=== PATIENT | male | born 1955 | race African-American/Black ===

== ENCOUNTER → 2016-11-03 | Outpatient (CLI) | payer MEDICARE, MEDICAID | END | disposition home or self-care (01) | LOC: MRI 15:35 | DX: M75.101 Unspecified rotator cuff tear or rupture of right shoulder, not specified as traumatic (principal); M19.011 Primary osteoarthritis, right shoulder | CPT/HCPCS: 73221 ==

== ENCOUNTER 2017-10-26 02:59 | Emergency (ER) | payer MEDICARE, MEDICAID ==
[~2017-10-26] VITALS: Ht 160 cm; Wt 74.0 kg
[2017-10-26] MEDS ORDERED: SODIUM CHLORIDE 0.9% 1,000 ML IV ONE (05:22)
[2017-10-26 05:40] LABS: BASOPHILS % 1.3 % (0.0-2.0); EOSINOPHILS % 0.8 % (0.0-5.0); HEMATOCRIT. 45.6 % (42.0-52.0); HEMOGLOBIN. 15.7 g/dL (14.0-18.0); LYMPHOCYTES % 33.5 % (20.0-50.0); MEAN CORPUSCULAR VOLUME 93.2 fL (80.0-94.0); MEAN PLATELET VOLUME 8.1 fl (7.4-10.4); MONOCYTES % 12.4 % (2.0-8.0); PLATELET 178 x1000/uL (130-400); RED BLOOD CELL COUNT 4.89 mill/uL (4.7-6.1); RED CELL DISTRIBUTION WIDTH 15.9 % (11.6-14.6)
[2017-10-26 05:41] LABS: CHLORIDE 107 mEq/L (98-107)
[2017-10-26 05:43] LABS: PROTHROMBIN TIME 10.2 sec (9.1-11.1)
[2017-10-26 08:47] VITALS: BP 122/62
== END 2017-10-26 08:46 | disposition home or self-care (01) ==
LOC: ER 02:59
DX: S80.212A Abrasion, left knee, initial encounter (principal); S80.211A Abrasion, right knee, initial encounter; W06.XXXA Fall from bed, initial encounter; Y93.89 Activity, other specified; Y92.89 Other specified places as the place of occurrence of the external cause; Y99.8 Other external cause status
CPT/HCPCS: 36415; 73562; 80053; 85025; 85610; 99285; J7030

== ENCOUNTER 2017-12-03 03:34 | Emergency (ER) | payer MEDICARE, MEDICAID ==
[~2017-12-03] VITALS: Ht 162.6 cm; Wt 65.9 kg
[2017-12-03] MEDS ORDERED: MAGNESIUM/ALUMINUM HYDROXIDE/SIMETHICONE 30ML UDC PO STA (04:39)
[2017-12-03 04:56] LABS: BASOPHILS % 1.3 % (0.0-2.0); EOSINOPHILS % 0.8 % (0.0-5.0); HEMATOCRIT. 45.5 % (42.0-52.0); HEMOGLOBIN. 15.3 g/dL (14.0-18.0); LYMPHOCYTES % 18.6 % (20.0-50.0); MEAN CORPUSCULAR HEMOGLOBIN 31.7 pg (28.0-32.0); MEAN CORPUSCULAR VOLUME 94.4 fL (80.0-94.0); MEAN PLATELET VOLUME 8.7 fl (7.4-10.4); MONOCYTES % 12.3 % (2.0-8.0); PLATELET 175 x1000/uL (130-400); RED BLOOD CELL COUNT 4.82 mill/uL (4.7-6.1); RED CELL DISTRIBUTION WIDTH 15.3 % (11.6-14.6)
[2017-12-03 05:02] LABS: CHLORIDE 108 mEq/L (98-107)
[2017-12-03 06:42] VITALS: BP 127/80
== END 2017-12-03 06:45 | disposition home or self-care (01) ==
LOC: ER 03:34
DX: R10.32 Left lower quadrant pain (principal)
CPT/HCPCS: 36415; 71045; 93005; 99285

== ENCOUNTER 2018-03-11 12:51 | Inpatient (IN) | payer MEDICARE, MEDICAID ==
[~2018-03-11] VITALS: Ht 160 cm; Wt 69.9 kg
[2018-03-11] MEDS ORDERED: ASPIRIN 81MG TABLET PO ONE (15:45)
[2018-03-11] MEDS ORDERED: ALBUTEROL (0.083%) 2.5MG/3ML NEB HHN STA (15:45)
[2018-03-11] MEDS ORDERED: IPRATROPIUM BROMIDE (0.02%) 0.5MG/2.5ML NEB HHN STA (15:45)
[2018-03-11 16:52] LABS: BASOPHILS % 1.1 % (0.0-2.0); EOSINOPHILS % 0.8 % (0.0-5.0); HEMATOCRIT. 45.5 % (42.0-52.0); HEMOGLOBIN. 14.9 g/dL (14.0-18.0); LYMPHOCYTES % 33.7 % (20.0-50.0); MEAN CORPUSCULAR HEMOGLOBIN 30.5 pg (28.0-32.0); MEAN PLATELET VOLUME 7.7 fl (7.4-10.4); MONOCYTES % 12.1 % (2.0-8.0); NEUTROPHILS % 52.3 % (40.0-76.0); PLATELET 224 x1000/uL (130-400); RED BLOOD CELL COUNT 4.89 mill/uL (4.7-6.1); RED CELL DISTRIBUTION WIDTH 16.5 % (11.6-14.6)
[2018-03-11 16:57] LABS: CHLORIDE 110 mEq/L (98-107)
[2018-03-11] MEDS ORDERED: MAGNESIUM/ALUMINUM HYDROXIDE/SIMETHICONE 30ML UDC PO PRN (20:30)
[2018-03-11] MEDS ORDERED: ONDANSETRON HCL 4MG/2ML INJ IV PRN (20:30)
[2018-03-11] MEDS ORDERED: ACETAMINOPHEN 325MG TABLET PO PRN (20:30)
[2018-03-11] MEDS ORDERED: CLONIDINE 0.1MG TABLET PO PRN (20:30)
[2018-03-11] MEDS ORDERED: MONTELUKAST SODIUM 10MG TABLET PO NR (21:45)
[2018-03-12 04:00] VITALS: BP 109/72
[2018-03-12] MEDS ORDERED: BUDESONIDE 0.25MG/2ML NEB HHN NR (04:00)
[2018-03-12] MEDS ORDERED: MONT10TA21 PO (05:40)
[2018-03-12] MEDS ORDERED: MELO-106 PO (05:41)
[2018-03-12] MEDS ORDERED: BENZ100C86 PO (05:41)
[2018-03-12 08:00] VITALS: BP 112/69
[2018-03-12 08:23] LABS: BG CARBOXYHEMOGLOBIN 0.7 % (0.5-1.5); BG DEOXYHEMOGLOBIN 6.3 % (0.0-5.0); BG FRACTION INSPIRED OXYGEN 21; BG HCO3 ACT 24.9 mmol/L (22.0-26.0); BG METHEMOGLOBIN 0.2 % (0.0-1.5); BG OXYGEN SATURATION 93.6 % (92.0-98.5); BG OXYHEMOGLOBIN 92.8 % (94.0-97.0); BG PCO2 37.1 mmHg (35.0-45.0); BG PH 7.444 (7.350-7.450); BG PO2 68.3 mmHg (75.0-100.0); BG SAMPLE SITE LEFT RADIAL; BG TOTAL HEMOGLOBIN 13.9 g/dL (12.0-18.0); BG VENT MODE ROOM AIR
[2018-03-12] MEDS ORDERED: ENOXAPARIN 80MG/0.8ML SYR SUBCUT NR (08:30)
[2018-03-12] MEDS: IPRATROPIUM/ALBUTEROL 0.5-3(2.5)MG/3ML NEB HHN SCH ×4 (08:44→20:06)
[2018-03-12] MEDS: BUDESONIDE 0.5MG/2ML NEB HHN SCH ×2 (08:45→20:07)
[2018-03-12] MEDS: TAMSULOSIN HCL 0.4MG SR CAPSULE PO SCH (08:58)
[2018-03-12] MEDS: DOCUSATE SODIUM 100MG CAPSULE PO SCH (08:59)
[2018-03-12] MEDS: FLUTICASONE PROPIONATE 50MCG/SPRAY BOTTLE BOTHNSTRLS SCH ×2 (09:00→20:36)
[2018-03-12] MEDS ORDERED: ENOXAPARIN 40MG/0.4ML SYR SUBCUT SCH (09:00)
[2018-03-12 11:56] VITALS: BP 107/65
[2018-03-12] MEDS: SODIUM CHLORIDE 0.45% 1,000 ML IV SCH (13:11)
[2018-03-12 16:00] VITALS: BP 100/55
[2018-03-12 16:03] LABS: EOSINOPHILS % 0.9 % (0.0-5.0); HEMATOCRIT. 39.2 % (42.0-52.0); HEMOGLOBIN. 12.8 g/dL (14.0-18.0); LYMPHOCYTES % 26.7 % (20.0-50.0); MEAN CORPUSCULAR HEMOGLOBIN 30.4 pg (28.0-32.0); MEAN CORPUSCULAR VOLUME 92.8 fL (80.0-94.0); MEAN PLATELET VOLUME 7.9 fl (7.4-10.4); MONOCYTES % 10.4 % (2.0-8.0); PLATELET 208 x1000/uL (130-400); RED BLOOD CELL COUNT 4.22 mill/uL (4.7-6.1); RED CELL DISTRIBUTION WIDTH 16.6 % (11.6-14.6)
[2018-03-12 16:35] LABS: CHLORIDE 112 mEq/L (98-107)
[2018-03-12 16:46] LABS: CREATINE KINASE MB FRACTION 1.4 ng/mL (0.5-3.6)
[2018-03-12] MEDS: MONTELUKAST SODIUM 10MG TABLET PO SCH (18:24)
[2018-03-12 18:57] LABS: CLARITY URINE CLEAR (CLEAR); COLOR URINE YELLOW (YELLOW); KETONES URINE TRACE (NEGATIVE); LEUKOCYTE ESTERASE URINE NEGATIVE (NEGATIVE); NITRITE URINE NEGATIVE (NEGATIVE); OCCULT BLOOD URINE NEGATIVE (NEGATIVE); PROTEIN URINE NEGATIVE (NEGATIVE); SPECIFIC GRAVITY URINE 1.026 (1.005-1.030); UROBILINOGEN URINE 0.2 E.U./dL (0.2-1.0)
[2018-03-12 19:21] LABS: *AMPHETAMINES SCREEN URINE NEGATIVE (NEGATIVE); *BARBITURATES SCREEN URINE NEGATIVE (NEGATIVE); *BENZODIAZEPINES SCREEN URINE NEGATIVE (NEGATIVE); *COCAINE SCREEN URINE NEGATIVE (NEGATIVE); METHADONE URINE SCREEN NEGATIVE (NEGATIVE); OPIATES URINE SCREEN NEGATIVE (NEGATIVE)
[2018-03-12 19:22] LABS: CANNABINOID URINE SCREEN NEGATIVE (NEGATIVE); PHENCYCLIDINE URINE SCREEN NEGATIVE (NEGATIVE)
[2018-03-12 20:00] VITALS: BP 105/60
[2018-03-12] MEDS ORDERED: ENOXAPARIN 80MG/0.8ML SYR SUBCUT SCH (21:00)
[2018-03-13] VITALS: BP 116/52
[2018-03-13] MEDS: IPRATROPIUM/ALBUTEROL 0.5-3(2.5)MG/3ML NEB HHN SCH ×6 (00:19→20:10)
[2018-03-13 04:00] VITALS: BP 113/62
[2018-03-13 06:00] LABS: INR 1.1; PROTHROMBIN TIME 10.7 sec (9.1-11.1)
[2018-03-13 06:14] LABS: BASOPHILS % 0.9 % (0.0-2.0); EOSINOPHILS % 2.3 % (0.0-5.0); HEMATOCRIT. 39.9 % (42.0-52.0); HEMOGLOBIN. 13.1 g/dL (14.0-18.0); LYMPHOCYTES % 33.6 % (20.0-50.0); MEAN CORPUSCULAR HEMOGLOBIN 30.7 pg (28.0-32.0); MEAN CORPUSCULAR VOLUME 93.2 fL (80.0-94.0); MEAN PLATELET VOLUME 7.7 fl (7.4-10.4); MONOCYTES % 10.6 % (2.0-8.0); NEUTROPHILS % 52.6 % (40.0-76.0); PLATELET 202 x1000/uL (130-400); RED BLOOD CELL COUNT 4.28 mill/uL (4.7-6.1); RED CELL DISTRIBUTION WIDTH 16.9 % (11.6-14.6)
[2018-03-13 06:26] LABS: CHLORIDE 112 mEq/L (98-107)
[2018-03-13] MEDS: SODIUM CHLORIDE 0.45% 1,000 ML IV SCH (06:30)
[2018-03-13 08:00] VITALS: BP 116/67
[2018-03-13] MEDS: DOCUSATE SODIUM 100MG CAPSULE PO SCH (08:33)
[2018-03-13] MEDS: TAMSULOSIN HCL 0.4MG SR CAPSULE PO SCH (08:34)
[2018-03-13] MEDS: FLUTICASONE PROPIONATE 50MCG/SPRAY BOTTLE BOTHNSTRLS SCH ×2 (08:38→21:00)
[2018-03-13] MEDS: RIVAROXABAN 15 MG TABLET PO SCH ×2 (08:42→16:44)
[2018-03-13] MEDS: BUDESONIDE 0.5MG/2ML NEB HHN SCH ×2 (09:37→20:10)
[2018-03-13 12:00] VITALS: BP 110/54
[2018-03-13] MEDS: MONTELUKAST SODIUM 10MG TABLET PO SCH (16:44)
[2018-03-13 16:45] VITALS: BP 97/57
[2018-03-13 20:00] VITALS: BP 100/72
[2018-03-14] VITALS: BP 113/75
[2018-03-14] MEDS: IPRATROPIUM/ALBUTEROL 0.5-3(2.5)MG/3ML NEB HHN SCH ×3 (00:12→08:55)
[2018-03-14] MEDS: SODIUM CHLORIDE 0.45% 1,000 ML IV SCH (01:36)
[2018-03-14 04:00] VITALS: BP 109/64
[2018-03-14 08:00] VITALS: BP 117/71
[2018-03-14 08:08] LABS: HEMATOCRIT. 41.1 % (42.0-52.0); HEMOGLOBIN. 13.6 g/dL (14.0-18.0); MEAN CORPUSCULAR HEMOGLOBIN 30.7 pg (28.0-32.0); MEAN CORPUSCULAR VOLUME 92.6 fL (80.0-94.0); MEAN PLATELET VOLUME 7.6 fl (7.4-10.4); PLATELET 203 x1000/uL (130-400); RED BLOOD CELL COUNT 4.44 mill/uL (4.7-6.1); RED CELL DISTRIBUTION WIDTH 16.9 % (11.6-14.6)
[2018-03-14 08:18] LABS: CHLORIDE 112 mEq/L (98-107)
[2018-03-14] MEDS: BUDESONIDE 0.5MG/2ML NEB HHN SCH (08:55)
[2018-03-14] MEDS: DOCUSATE SODIUM 100MG CAPSULE PO SCH (09:27)
[2018-03-14] MEDS: RIVAROXABAN 15 MG TABLET PO SCH (09:27)
[2018-03-14] MEDS: TAMSULOSIN HCL 0.4MG SR CAPSULE PO SCH (09:28)
[2018-03-14] MEDS: FLUTICASONE PROPIONATE 50MCG/SPRAY BOTTLE BOTHNSTRLS SCH (09:32)
[2018-03-14 10:41] VITALS: BP 96/117
[2018-03-14 15:24] LABS: PLATELET ESTIMATE NORMAL
== END 2018-03-14 11:13 | disposition home or self-care (01) | DRG 682 ==
LOC: ER 12:51 → 8WST 18:31 → EDBEDREQ 18:41 → ENRESERV 03-12 02:28
PROVIDERS: ADMIT Internal Medicine Geriatric Medicine; ATTEND Internal Medicine Geriatric Medicine
DX: N17.9 Acute kidney failure, unspecified (principal); I26.99 Other pulmonary embolism without acute cor pulmonale; I82.412 Acute embolism and thrombosis of left femoral vein; J45.901 Unspecified asthma with (acute) exacerbation; F84.0 Autistic disorder; I82.432 Acute embolism and thrombosis of left popliteal vein; R62.50 Unspecified lack of expected normal physiological development in childhood; M19.92 Post-traumatic osteoarthritis, unspecified site; R79.89 Other specified abnormal findings of blood chemistry; R33.9 Retention of urine, unspecified; D64.9 Anemia, unspecified; R34 Anuria and oliguria; Z91.81 History of falling; Q90.9 Down syndrome, unspecified; Z79.01 Long term (current) use of anticoagulants
CPT/HCPCS: 36415; 36600; 71045; 78582; 80048; 80305; 82270; 82375; 82553; 82805; 83880; 84484; 93005; 93306; 93970; 94640; 97116; 97162; 99285; A9558; C1893; J1650; J7611; J7620; J7626

== ENCOUNTER → 2018-05-22 | Outpatient (CLI) | payer MEDICARE, MEDICAID ==
[~2018-05-22] MED LIST: ASCO100T12 PO; BENZ100C86 PO; CENTRUM LIQUID; MELO-106 PO; MOM PO; MONT10TA21 PO; POTASSIUM; RIVA20TA PO; TAMS0.4C31 PO; VOLTAREN GEL
== END | disposition home or self-care (01) ==
LOC: CARD 09:49
PROVIDERS: ATTEND Psychiatry & Neurology Neurology
DX: F05 Delirium due to known physiological condition (principal); R26.89 Other abnormalities of gait and mobility

== ENCOUNTER 2018-06-24 12:46 | Emergency (ER) | payer MEDICARE, MEDICAID ==
[~2018-06-24] VITALS: Ht 162.6 cm; Wt 70.0 kg
[~2018-06-24 12:46] MED LIST changes: -ASCO100T12 PO; -CENTRUM LIQUID; -MOM PO; -POTASSIUM; -RIVA20TA PO; -TAMS0.4C31 PO; -VOLTAREN GEL
[2018-06-24] MEDS ORDERED: TAMS0.4C31 PO (12:58)
[2018-06-24] MEDS ORDERED: POTASSIUM (12:58)
[2018-06-24] MEDS ORDERED: RIVA20TA PO (12:58)
[2018-06-24] MEDS ORDERED: MOM PO (12:58)
[2018-06-24] MEDS ORDERED: CENTRUM LIQUID (12:58)
[2018-06-24] MEDS ORDERED: VOLTAREN GEL (12:58)
[2018-06-24] MEDS ORDERED: ASCO100T12 PO (12:58)
[2018-06-24 18:00] VITALS: BP 118/68
== END 2018-06-24 18:27 | disposition home or self-care (01) ==
LOC: ER 12:46
DX: I82.5Z2 Chronic embolism and thrombosis of unspecified deep veins of left distal lower extremity (principal); Z79.899 Other long term (current) drug therapy
CPT/HCPCS: 93971; 99284

== ENCOUNTER 2018-08-07 16:06 | Inpatient (IN) | payer MEDICARE, MEDICAID ==
[~2018-08-07] VITALS: Ht 160 cm; Wt 73.0 kg
[~2018-08-07 16:06] MED LIST changes: +ASCO100T12 PO; +CENTRUM LIQUID; +MOM PO; +POTASSIUM; +RIVA20TA PO; +TAMS0.4C31 PO; +VOLTAREN GEL
[2018-08-07] MEDS ORDERED: TRAMADOL 50MG TABLET PO ONE (18:30)
[2018-08-07 20:02] LABS: BASOPHILS % 0.9 % (0.0-2.0); EOSINOPHILS % 0.6 % (0.0-5.0); HEMATOCRIT. 47.6 % (42.0-52.0); HEMOGLOBIN. 16.1 g/dL (14.0-18.0); LYMPHOCYTES % 37.3 % (20.0-50.0); MEAN CORPUSCULAR HEMOGLOBIN 31.8 pg (28.0-32.0); MEAN CORPUSCULAR VOLUME 94.3 fL (80.0-94.0); MEAN PLATELET VOLUME 7.5 fl (7.4-10.4); MONOCYTES % 10.6 % (2.0-8.0); NEUTROPHILS % 50.6 % (40.0-76.0); PLATELET 174 x1000/uL (130-400); RED BLOOD CELL COUNT 5.05 mill/uL (4.7-6.1); RED CELL DISTRIBUTION WIDTH 16.2 % (11.6-14.6)
[2018-08-07 20:07] LABS: CHLORIDE 109 mEq/L (98-107)
[2018-08-07 20:10] LABS: INR 1.4; PARTIAL THROMBOPLASTIN TIME 41.8 sec (23.4-31.0); PROTHROMBIN TIME 14.5 sec (9.6-11.0)
[2018-08-07] MEDS ORDERED: MAGNESIUM/ALUMINUM HYDROXIDE/SIMETHICONE 30ML UDC PO PRN (22:00)
[2018-08-07] MEDS ORDERED: ONDANSETRON HCL 4MG/2ML INJ IV PRN (22:00)
[2018-08-07] MEDS ORDERED: CLONIDINE 0.1MG TABLET PO PRN (22:00)
[2018-08-07] MEDS ORDERED: IPRATROPIUM/ALBUTEROL 0.5-3(2.5)MG/3ML NEB INH PRN (22:00)
[2018-08-08] VITALS: BP 97/55
[2018-08-08] MEDS: SODIUM CHL 0.45% + KCL 20MEQ/L 1,000 ML IV SCH ×3 (01:34→17:01)
[2018-08-08 04:00] VITALS: BP 120/71
[2018-08-08 06:19] LABS: CHLORIDE 112 mEq/L (98-107)
[2018-08-08 06:21] LABS: BASOPHILS % 0.8 % (0.0-2.0); EOSINOPHILS % 1.9 % (0.0-5.0); HEMATOCRIT. 43.9 % (42.0-52.0); HEMOGLOBIN. 14.6 g/dL (14.0-18.0); LYMPHOCYTES % 39.2 % (20.0-50.0); MEAN CORPUSCULAR HEMOGLOBIN 31.6 pg (28.0-32.0); MEAN CORPUSCULAR VOLUME 94.9 fL (80.0-94.0); MEAN PLATELET VOLUME 8.1 fl (7.4-10.4); MONOCYTES % 12.3 % (2.0-8.0); NEUTROPHILS % 45.8 % (40.0-76.0); PLATELET 166 x1000/uL (130-400); RED BLOOD CELL COUNT 4.63 mill/uL (4.7-6.1); RED CELL DISTRIBUTION WIDTH 16.6 % (11.6-14.6)
[2018-08-08 08:00] VITALS: BP 101/64
[2018-08-08] MEDS: DOCUSATE SODIUM 250MG CAPSULE PO SCH (08:46)
[2018-08-08] MEDS: TAMSULOSIN HCL 0.4MG SR CAPSULE PO SCH (08:47)
[2018-08-08] MEDS: ENOXAPARIN 40MG/0.4ML SYR SUBCUT SCH (08:47)
[2018-08-08] MEDS ORDERED: TAMSULOSIN HCL 0.4MG SR CAPSULE PO SCH (09:15)
[2018-08-08] MEDS: MELOXICAM 7.5MG TABLET PO SCH (09:30)
[2018-08-08 09:54] LABS: CLARITY URINE CLEAR (CLEAR); COLOR URINE YELLOW (YELLOW); KETONES URINE NEGATIVE (NEGATIVE); LEUKOCYTE ESTERASE URINE NEGATIVE (NEGATIVE); NITRITE URINE NEGATIVE (NEGATIVE); OCCULT BLOOD URINE NEGATIVE (NEGATIVE); PROTEIN URINE NEGATIVE (NEGATIVE); SPECIFIC GRAVITY URINE 1.021 (1.005-1.030); UROBILINOGEN URINE 0.2 E.U./dL (0.2-1.0)
[2018-08-08] MEDS: MAGNESIUM HYDROXIDE 400MG/5ML 30ML UDC PO SCH (10:24)
[2018-08-08 11:54] VITALS: BP 114/93
[2018-08-08 16:00] VITALS: BP 92/53
[2018-08-08 20:00] VITALS: BP 109/62
[2018-08-08] MEDS ORDERED: MONTELUKAST SODIUM 10MG TABLET PO SCH (21:00)
[2018-08-09] VITALS: BP 122/74
[2018-08-09] MEDS: ACETAMINOPHEN 325MG TABLET PO PRN ×3 (02:16→12:35)
[2018-08-09] MEDS: SODIUM CHL 0.45% + KCL 20MEQ/L 1,000 ML IV SCH (05:59)
[2018-08-09 06:00] VITALS: BP 110/63
[2018-08-09 08:00] VITALS: BP 121/70
[2018-08-09] MEDS: MELOXICAM 7.5MG TABLET PO SCH (10:01)
[2018-08-09] MEDS: MAGNESIUM HYDROXIDE 400MG/5ML 30ML UDC PO SCH (10:02)
[2018-08-09] MEDS: ENOXAPARIN 40MG/0.4ML SYR SUBCUT SCH (10:02)
[2018-08-09] MEDS: DOCUSATE SODIUM 250MG CAPSULE PO SCH (10:02)
[2018-08-09] MEDS: TAMSULOSIN HCL 0.4MG SR CAPSULE PO SCH (10:04)
[2018-08-09] MEDS ORDERED: LACTULOSE 20G/30ML UDC PO NR (10:15)
[2018-08-09 12:00] VITALS: BP 108/60
[2018-08-09 12:47] VITALS: BP 108/60
== END 2018-08-09 16:35 | disposition home health service (06) | DRG 605 ==
LOC: ER 18:35 → 6EST 20:38 → ENRESERV 21:30 → EDBEDREQ 21:33
PROVIDERS: ADMIT Internal Medicine Nephrology; ATTEND Internal Medicine Nephrology
DX: S80.11XA Contusion of right lower leg, initial encounter (principal); N17.9 Acute kidney failure, unspecified; N39.0 Urinary tract infection, site not specified; S70.02XA Contusion of left hip, initial encounter; D63.8 Anemia in other chronic diseases classified elsewhere; D75.89 Other specified diseases of blood and blood-forming organs; N40.1 Benign prostatic hyperplasia with lower urinary tract symptoms; M19.90 Unspecified osteoarthritis, unspecified site; R41.89 Other symptoms and signs involving cognitive functions and awareness; R33.8 Other retention of urine; N35.919 Unspecified urethral stricture, male, unspecified site; W18.39XA Other fall on same level, initial encounter; Q90.9 Down syndrome, unspecified; Z86.718 Personal history of other venous thrombosis and embolism; Z79.01 Long term (current) use of anticoagulants; Z79.899 Other long term (current) drug therapy; Y93.89 Activity, other specified; Y92.89 Other specified places as the place of occurrence of the external cause; Y99.8 Other external cause status
CPT/HCPCS: 36415; 71045; 72170; 73502; 73700; 80048; 93005; 97116; 97162; 99285; J1650; J3480; A4315

== ENCOUNTER 2019-03-04 13:52 | Emergency (ER) | payer MEDICARE, MEDICAID ==
[~2019-03-04] VITALS: Ht 162.6 cm; Wt 67.0 kg
[2019-03-04] MEDS ORDERED: SODIUM CHLORIDE 0.9% 1,000 ML IV ONE (17:26)
[2019-03-04] MEDS ORDERED: KETOROLAC 30MG/ML VIAL IV STA (17:26)
[2019-03-04 19:36] LABS: BASOPHILS % 1.3 % (0.0-2.0); EOSINOPHILS % 0.9 % (0.0-5.0); HEMATOCRIT. 46.7 % (42.0-52.0); HEMOGLOBIN. 15.6 g/dL (14.0-18.0); LYMPHOCYTES % 46.8 % (20.0-50.0); MEAN CORPUSCULAR HEMOGLOBIN 32.2 pg (28.0-32.0); MEAN CORPUSCULAR VOLUME 96.6 fL (80.0-94.0); MONOCYTES % 12.2 % (2.0-8.0); NEUTROPHILS % 38.8 % (40.0-76.0); PLATELET 143 x1000/uL (130-400); RED BLOOD CELL COUNT 4.83 mill/uL (4.7-6.1); RED CELL DISTRIBUTION WIDTH 16.4 % (11.6-14.6)
[2019-03-04 19:44] LABS: CHLORIDE 111 mEq/L (98-107)
[2019-03-04 19:45] LABS: INR 1.6; PARTIAL THROMBOPLASTIN TIME 43.6 sec (23.4-31.0); PROTHROMBIN TIME 16.2 sec (9.6-11.0)
[2019-03-04 22:02] VITALS: BP 121/75
== END 2019-03-04 22:04 | disposition home or self-care (01) ==
LOC: ER 13:52
DX: M25.552 Pain in left hip (principal); I82.492 Acute embolism and thrombosis of other specified deep vein of left lower extremity; Z79.899 Other long term (current) drug therapy; W01.0XXA Fall on same level from slipping, tripping and stumbling without subsequent striking against object, initial encounter; Y93.89 Activity, other specified; Y92.89 Other specified places as the place of occurrence of the external cause; Y99.8 Other external cause status
CPT/HCPCS: 36415; 73502; 80053; 85025; 85610; 85730; 93005; 93970; 99284; J7030

== ENCOUNTER 2019-03-23 11:08 | Emergency (ER) | payer MEDICARE, MEDICAID ==
[~2019-03-23] VITALS: Ht 152.4 cm; Wt 68.0 kg
[2019-03-23 16:29] VITALS: BP 100/79
== END 2019-03-23 16:35 | disposition home or self-care (01) ==
LOC: ER 11:08
DX: S89.81XA Other specified injuries of right lower leg, initial encounter (principal); X58.XXXA Exposure to other specified factors, initial encounter; Y93.89 Activity, other specified; Y92.89 Other specified places as the place of occurrence of the external cause; Y99.8 Other external cause status
CPT/HCPCS: 73562; 99283

== ENCOUNTER 2019-07-21 08:53 | Emergency (ER) | payer MEDICARE, MEDICAID ==
[~2019-07-21] VITALS: Ht 167.6 cm; Wt 59.0 kg
[2019-07-21 09:26] LABS: BASOPHILS % 0.2 % (0.0-2.0); EOSINOPHILS % 0.8 % (0.0-5.0); HEMATOCRIT. 47.3 % (42.0-52.0); HEMOGLOBIN. 16.3 g/dL (14.0-18.0); MEAN CORPUSCULAR HEMOGLOBIN 33.5 pg (28.0-32.0); MEAN CORPUSCULAR VOLUME 97.4 fL (80.0-94.0); MEAN PLATELET VOLUME 7.7 fl (7.4-10.4); PLATELET 149 x1000/uL (130-400); RED BLOOD CELL COUNT 4.85 mill/uL (4.7-6.1); RED CELL DISTRIBUTION WIDTH 15.7 % (11.6-14.6)
[2019-07-21 09:33] LABS: CHLORIDE 109 mEq/L (98-107)
[2019-07-21 09:37] LABS: ETHANOL BLOOD < 10 mg/dL
[2019-07-21 11:03] VITALS: BP 103/67
== END 2019-07-21 12:13 | disposition home or self-care (01) ==
LOC: ER 09:22
DX: G40.909 Epilepsy, unspecified, not intractable, without status epilepticus (principal); Q90.9 Down syndrome, unspecified; Z86.718 Personal history of other venous thrombosis and embolism; Z79.01 Long term (current) use of anticoagulants; Z79.899 Other long term (current) drug therapy
CPT/HCPCS: 36415; 71045; 80053; 80320; 85025; 99285; G0480

== ENCOUNTER 2020-03-05 11:25 | Inpatient (IN) | payer MEDICARE, MEDICAID ==
[~2020-03-05] VITALS: Ht 182.9 cm; Wt 80.0 kg
[2020-03-05] MEDS ORDERED: AZITHROMYCIN 500 MG in DEXT 5% WATER 250 ML IV STA (11:47)
[2020-03-05] MEDS ORDERED: DEXAMETHASONE 10 MG/ML VIAL IV ONE (12:00)
[2020-03-05] MEDS ORDERED: MIDAZOLAM HCL 100 MG in DEXT 5% WATER 80 ML IV ONE (12:00)
[2020-03-05] MEDS ORDERED: ACETAMINOPHEN 650MG SUPP PR STA (12:50)
[2020-03-05 12:51] LABS: BASOPHILS % 0.1 % (0.0-2.0); EOSINOPHILS % 0.1 % (0.0-5.0); HEMATOCRIT. 46.3 % (42.0-52.0); HEMOGLOBIN. 15.3 g/dL (14.0-18.0); LYMPHOCYTES % 22.1 % (20.0-50.0); MEAN CORPUSCULAR HEMOGLOBIN 31.6 pg (28.0-32.0); MEAN CORPUSCULAR VOLUME 95.7 fL (80.0-94.0); MEAN PLATELET VOLUME 8.7 fl (7.4-10.4); MONOCYTES % 8.2 % (2.0-8.0); NEUTROPHILS % 69.5 % (40.0-76.0); PLATELET 134 x1000/uL (130-400); RED BLOOD CELL COUNT 4.84 mill/uL (4.7-6.1); RED CELL DISTRIBUTION WIDTH 15.1 % (11.6-14.6)
[2020-03-05 13:00] LABS: CHLORIDE 111 mEq/L (98-107)
[2020-03-05] MEDS ORDERED: SODIUM CHLORIDE 0.9% 1000ML BAG (SEPSIS BOLUS) IV ONE (13:00)
[2020-03-05] MEDS ORDERED: CEFTRIAXONE 1 G PREMIX 50 ML IV ONE (13:00)
[2020-03-05 13:07] LABS: ETHANOL BLOOD < 10 mg/dL
[2020-03-05 13:11] LABS: CLARITY URINE CLOUDY (CLEAR); COLOR URINE DARK YELLOW (YELLOW); KETONES URINE TRACE (NEGATIVE); LEUKOCYTE ESTERASE URINE TRACE (NEGATIVE); NITRITE URINE NEGATIVE (NEGATIVE); OCCULT BLOOD URINE 3+ (NEGATIVE); PROTEIN URINE 3+ (NEGATIVE); SPECIFIC GRAVITY URINE 1.023 (1.005-1.030); UROBILINOGEN URINE 0.2 E.U./dL (0.2-1.0)
[2020-03-05 13:26] LABS: D-DIMER 4.01 mg/L FEU (<0.50); INR 1.2
[2020-03-05 13:27] LABS: CREATINE KINASE 2190 IU/L (39-308)
[2020-03-05 13:28] LABS: *AMPHETAMINES SCREEN URINE NEGATIVE (NEGATIVE); *BARBITURATES SCREEN URINE NEGATIVE (NEGATIVE); *BENZODIAZEPINES SCREEN URINE NEGATIVE (NEGATIVE); *COCAINE SCREEN URINE NEGATIVE (NEGATIVE); METHADONE URINE SCREEN NEGATIVE (NEGATIVE)
[2020-03-05 13:29] LABS: CANNABINOID URINE SCREEN NEGATIVE (NEGATIVE); OPIATES URINE SCREEN NEGATIVE (NEGATIVE); PHENCYCLIDINE URINE SCREEN NEGATIVE (NEGATIVE)
[2020-03-05 13:30] LABS: FIBRINOGEN > 900 mg/dL (200-400)
[2020-03-05] MEDS ORDERED: NOREPINEPHRINE 8 MG in DEXT 5% WATER 242 ML IV STA (13:49)
[2020-03-05] MEDS: NOREPINEPHRINE 8 MG in DEXT 5% WATER 242 ML IV PRN (14:17)
[2020-03-05] MEDS ORDERED: ACETAMINOPHEN 325MG TABLET PO PRN (14:30)
[2020-03-05] MEDS ORDERED: ONDANSETRON HCL 4MG/2ML INJ IV PRN (14:30)
[2020-03-05] MEDS ORDERED: LEVETIRACETAM 500MG PREMIX 100 ML IV NR (14:30)
[2020-03-05] MEDS ORDERED: ACETAMINOPHEN 650MG SUPP PR PRN (14:30)
[2020-03-05] MEDS ORDERED: VANCOMYCIN 1500MG in DEXTROSE 5% WATER 250ML IV SCH ×2 (14:45→15:00)
[2020-03-05] MEDS: CEFEPIME 1,000 MG in DEXTROSE 5% WATER 50 ML IV SCH (15:03)
[2020-03-05] MEDS: MIDAZOLAM HCL 100 MG in SODIUM CHLORIDE 0.9% 80 ML IV ONE (15:24)
[2020-03-05 15:45] LABS: BG BASE EXCESS -7.3 mmol/L (-2.0-2.0); BG CARBOXYHEMOGLOBIN 0.3 % (0.5-1.5); BG FRACTION INSPIRED OXYGEN 100; BG HCO3 ACT 19.2 mmol/L (22.0-26.0); BG METHEMOGLOBIN 0.5 % (0.0-1.5); BG OXYGEN SATURATION 92.9 % (92.0-98.5); BG OXYHEMOGLOBIN 92.2 % (94.0-97.0); BG PCO2 42.2 mmHg (35.0-45.0); BG PH 7.276 (7.350-7.450); BG PO2 72.6 mmHg (75.0-100.0); BG SAMPLE SITE LEFT RADIAL; BG TOTAL HEMOGLOBIN 13.7 g/dL (12.0-18.0); BG VENT MODE VENT - AC
[2020-03-05] MEDS ORDERED: SODIUM CHLORIDE 0.45% 1,000 ML IV SCH (16:00)
[2020-03-05] MEDS: IPRATROPIUM/ALBUTEROL 0.5-3(2.5)MG/3ML NEB HHN SCH ×2 (17:15→21:22)
[2020-03-05] MEDS ORDERED: FENTANYL CITRATE 2,500 MCG in SODIUM CHLORIDE 0.9% 200 ML IV PRN (18:00)
[2020-03-05] MEDS ORDERED: APIXABAN 2.5 MG TABLET PO SCH (21:00)
[2020-03-05] MEDS: SODIUM BICARBONATE 50 MEQ in DEXT 5%/0.45% NACL 1000ML 1,000 ML IV SCH (22:39)
[2020-03-05] MEDS: APIXABAN 5 MG TABLET PO SCH (22:39)
[2020-03-05] MEDS: LEVETIRACETAM 500MG/5ML CUP PO SCH (22:39)
[2020-03-06 01:24] LABS: CREATINE KINASE MB FRACTION 1.8 ng/mL (0.5-3.6)
[2020-03-06] MEDS: IPRATROPIUM/ALBUTEROL 0.5-3(2.5)MG/3ML NEB HHN SCH ×5 (04:00→16:00)
[2020-03-06] MEDS: CEFEPIME 1,000 MG in DEXTROSE 5% WATER 50 ML IV SCH ×2 (05:00→14:30)
[2020-03-06 08:05] LABS: MEAN CORPUSCULAR VOLUME 96.5 fL (80.0-94.0); MEAN PLATELET VOLUME 9.2 fl (7.4-10.4); PLATELET 117 x1000/uL (130-400); RED BLOOD CELL COUNT 4.36 mill/uL (4.7-6.1); RED CELL DISTRIBUTION WIDTH 15.7 % (11.6-14.6)
[2020-03-06 08:11] LABS: CHLORIDE 107 mEq/L (98-107)
[2020-03-06 08:23] LABS: CREATINE KINASE MB FRACTION 6.5 ng/mL (0.5-3.6)
[2020-03-06 08:32] LABS: CREATINE KINASE 3057 IU/L (39-308)
[2020-03-06] MEDS: LEVETIRACETAM 500MG/5ML CUP PO SCH (09:00)
[2020-03-06] MEDS: APIXABAN 5 MG TABLET PO SCH ×2 (09:00→17:31)
[2020-03-06] MEDS: SODIUM BICARBONATE 50 MEQ in DEXT 5%/0.45% NACL 1000ML 1,000 ML IV SCH (10:00)
[2020-03-06] MEDS ORDERED: MIDAZOLAM HCL 100 MG in SODIUM CHLORIDE 0.9% 80 ML IV NR (11:30)
[2020-03-06] MEDS: NOREPINEPHRINE 8 MG in DEXT 5% WATER 242 ML IV PRN (12:19)
[2020-03-06] MEDS ORDERED: ASPIRIN 81MG TABLET PO SCH (15:00)
[2020-03-06 17:07] VITALS: BP 96/61
[2020-03-06 17:08] LABS: PLATELET ESTIMATE DECREASED
== END 2020-03-06 19:15 | disposition expired | DRG 871 ==
LOC: ER 11:25 → MICUSO 14:15 → EDBEDREQ 14:47
PROVIDERS: ADMIT Internal Medicine Geriatric Medicine; ATTEND Internal Medicine Geriatric Medicine
PROC: 5A1945Z Respiratory Ventilation, 24-96 Consecutive Hours (ICD-10-PCS; principal; 2020-03-05)
PROC: B54MZZA Ultrasonography of Right Upper Extremity Veins, Guidance (ICD-10-PCS; 2020-03-05)
PROC: 0BH18EZ Insertion of Endotracheal Airway into Trachea, Via Natural or Artificial Opening Endoscopic (ICD-10-PCS; 2020-03-05)
PROC: 05HY33Z Insertion of Infusion Device into Upper Vein, Percutaneous Approach (ICD-10-PCS; 2020-03-05)
PROC: 5A12012 Performance of Cardiac Output, Single, Manual (ICD-10-PCS; 2020-03-06)
DX: A41.89 Other specified sepsis (principal); U07.1 COVID-19; R65.21 Severe sepsis with septic shock; G92 Toxic encephalopathy; I21.4 Non-ST elevation (NSTEMI) myocardial infarction; J96.01 Acute respiratory failure with hypoxia; N17.0 Acute kidney failure with tubular necrosis; J12.82 Pneumonia due to coronavirus disease 2019; E44.0 Moderate protein-calorie malnutrition; E87.2 Acidosis; I82.502 Chronic embolism and thrombosis of unspecified deep veins of left lower extremity; M62.82 Rhabdomyolysis; J91.8 Pleural effusion in other conditions classified elsewhere; D69.6 Thrombocytopenia, unspecified; D72.819 Decreased white blood cell count, unspecified; E87.5 Hyperkalemia; Z66 Do not resuscitate; Z51.5 Encounter for palliative care; I12.9 Hypertensive chronic kidney disease with stage 1 through stage 4 chronic kidney disease, or unspecified chronic kidney disease; I27.21 Secondary pulmonary arterial hypertension; J45.909 Unspecified asthma, uncomplicated; M19.90 Unspecified osteoarthritis, unspecified site; N18.30 Chronic kidney disease, stage 3 unspecified; N40.1 Benign prostatic hyperplasia with lower urinary tract symptoms; I95.9 Hypotension, unspecified; M75.101 Unspecified rotator cuff tear or rupture of right shoulder, not specified as traumatic; R74.8 Abnormal levels of other serum enzymes; I46.9 Cardiac arrest, cause unspecified; D64.9 Anemia, unspecified; Z79.01 Long term (current) use of anticoagulants; Q90.9 Down syndrome, unspecified; Z79.899 Other long term (current) drug therapy; Z82.41 Family history of sudden cardiac death; X58.XXXA Exposure to other specified factors, initial encounter; Y93.89 Activity, other specified; Y92.89 Other specified places as the place of occurrence of the external cause; Y99.8 Other external cause status; G30.9 Alzheimer's disease, unspecified; F02.80 Dementia in other diseases classified elsewhere, unspecified severity, without behavioral disturbance, psychotic disturbance, mood disturbance, and anxiety
CPT/HCPCS: 36415; 36600; 71045; 76770; 76937; 80053; 80305; 80320; 81003; 82375; 82550; 82553; 82728; 82805; 83605; 83615; 83880; 84145; 84484; 85025; 85379; 85384; 86140; 87077; 87186; 87635; 93005; 94002; 94640; 99291; C1725; J0456; J0692; J0696; J1100; J1953; J2250; J3370; J3490; J7030; J7050; J7060; G0480